=== PATIENT | male | born 1985 | race Caucasian/White ===

== ENCOUNTER 2025-08-17 21:48 | Emergency (ER) | payer OTHER, SELFPAY ==
[2025-08-17 21:49] VITALS: BMI 35.9
[2025-08-17 22:37] VITALS: BP 168/109; PULSE 79; RESP 18; TEMP 37; O2SAT 94
--- NOTE | 2025-08-17 22:40 | PD.EDEYE ---
ED Eye Problem RME/HPI General Chief complaint: Eye Problems Stated complaint: POSSIBLE GLASS IN EYE Time Seen by Provider: 08/17/25 22:38 Arrival date/time: 08/17/25 21:48 39M with no significant PMH presents to ED with R eye irritation after glass broke at work and some possibly got into eye. Patient irrigated eye right after at work. Patient does not wear contacts. Limitations: no limitations Related Data Home Medications ?Medication ?Instructions ?Recorded ?Confirmed albuterol sulfate 90 mcg/actuation 1 puff inhalation QID PRN 06/29/20 08/17/20 aerosol inhaler Bronchodilation Previous Rx's ?Medication ?Instructions ?Recorded albuterol sulfate 90 mcg/actuation 2 puff inhalation QID #8.5 grams 12/18/21 aerosol inhaler azithromycin 250 mg tablet See Rx Instructions PO .COMPLEX #6 12/18/21 tabs erythromycin 5 mg/gram (0.5 %) eye 0.5 inch ophthalmic (eye) QID 1 08/17/25 ointment week #3.5 grams Allergies Allergy/AdvReac Type Severity Reaction Status Date / Time No Known Allergies Allergy Verified 12/18/21 17:17 Review of Systems Review of Systems Systems Reviewed: All systems reviewed, normal except as documented Eyes Eyes: Reports as per HPI and Reports irritation Past Medical History Past Medical History CARDIAC: Negative Congestive Heart Failure RESPIRATORY: Positive Asthma; Negative Chronic Obstructive Pulmonary Disease (COPD) GENITOURINARY: Negative Renal Disease ENDOCRINE: Negative Diabetes Mellitus Type 1 or Diabetes Mellitus Type 2 Social History SMOKING STATUS: Current every day smoker SUBSTANCE USE: does not use ED Exam General Limitations: Present no limitations General appearance: Present alert and in no apparent distress Head Head exam: Present atraumatic Eye Eye exam: Present PERRL and EOMI Expanded Eye Exam Sclera/Conjunctival: right: injection ENT ENT exam: Present normal exam, normal oropharynx and mucous membranes moist Neck Neck exam: Present normal inspection, full ROM and trachea midline Neurological Exam Neurological exam: Present alert and oriented X3 Psychiatric Psychiatric exam: Present normal affect and normal mood Skin Skin exam: Present warm, dry, intact and normal color Course Quality Measures none Orders Category Date Time Status ED Eye Irrigation ONCE Care 08/17/25 22:38 Active Basurto Lamp to Bedside X1 Care 08/17/25 22:38 Active Erythromycin Op Oint 0.5% Med 08/17/25 22:38 Discontinued 1 gm RIGHT EYE X1 ONE Fluorescein Sodium [Bio-Catie] Med 08/17/25 22:38 Discontinued 1 mg RIGHT EYE X1 ONE Vital Signs Vital signs: Vital Signs Temperature 98.6 F 08/17/25 22:37 Pulse Rate 79 08/17/25 22:37 Respiratory Rate 18 08/17/25 22:37 Blood Pressure 168/109 H 08/17/25 22:37 Pulse Oximetry (%) 94 L 08/17/25 22:37 Oxygen Delivery Method Room Air 08/17/25 22:37 O2 at 94% on RA Eye MDM Narrative MDM Narrative:: 39M with no significant PMH presents to ED with R eye irritation after glass broke at work and some possibly got into eye. Patient irrigated eye right after at work. Patient does not wear contacts. Physical exam reveals R eye redness, but normal pupil response and EOM. No gross FB. Patient is afebrile, calm, and alert. Wood's lamp exam reveals no obvious FB or corneal abrasion. Eye irrigation, meds, and clinical mental health counselor given. Patient data External records reviewed:: [facility] previous records Clinical information provided by:: patient Social determinants that could affect healthcare access:: none Patient has the following chronic illnesses:: none How is presenting disease/condition affected by chronic disease/condition?: no chronic disease Evaluation data The following diagnostics were reviewed and interpreted by me:: other (specify) (none) Lab and/or radiology exams considered but not ordered:: not ordered Interpretation Summary: n/a Medications / Prescriptions Medications or Prescriptions considered but not ordered:: ordered Medication administrations:: Medication Administration History Discontinued Medications Erythromycin (Erythromycin Op Oint 0.5% 1 Gm Packet) 1 gm RIGHT EYE X1 ONE Stop: 08/17/25 22:39 Last Admin: 08/17/25 22:45 Dose: 1 gm Documented By: NINA Co-signed By: MYNOR Comments: admin by provider Fluorescein Sodium (Fluorescein Sod 1 Mg Strp) 1 mg RIGHT EYE X1 ONE Stop: 08/17/25 22:39 Last Admin: 08/17/25 22:45 Dose: 1 mg Documented By: NINA Comments: admin by provider above Consultations Consultation(s) initiated? (list below): No Diagnosis Eye Problem Differential Diagnosis: corneal abrasion, conjunctivitis, acute iritis, hyphema, periorbital cellulitis, subconjunctival hemorrhage, glaucoma, corneal ulcer, ruptured globe and other (FB eye) Most likely diagnosis given after review of the tests above:: corneal injury Admission Indicated Admission indicated?: not indicated Admission Request Was there a request for admission?: No Disposition Plan Disposition Plan: Discharge Discharge Attestation Discharge Attestation: The patient and all family members were given an opportunity to ask questions and understood the discharge instructions. Discharge instructions specifically effects, indications for sooner follow up or return to the emergency department, and the expected course of current diagnosis. Patient condition: Stable Discharge Plan Plan Patient Disposition: HOME (Self Care) Discharge Disposition comment: Stable Prescriptions/Referrals Prescriptions/Med Rec: New erythromycin 5 mg/gram (0.5 %) ointment 0.5 inch ophthalmic (eye) QID 7 Days Qty: 3.5 0RF No Action albuterol sulfate 90 mcg/actuation Hfa Aerosol Inhaler 1 puff INHALATION QID PRN (Reason: Bronchodilation) albuterol sulfate 90 mcg/actuation HFA aerosol inhaler 2 puff inhalation QID Qty: 8.5 0RF azithromycin 250 mg tablet See Rx Instructions .ROUTE .COMPLEX Qty: 6 0RF Rx Instructions: For 250 mg dose pack: take 500 mg today (day 1), then 250 mg for 4 days (days 2-5) Problem List Clinical Impression: Corneal injury Patient/Caregiver Discharge Instructions Education Materials: Corneal Injury Additional Instructions: Please follow-up with PCP within 24-48 hours and return immediately if symptoms worsen. See eye doctorin the next few days. Only shredder picker meds if you run out of the ones given in ED. Print Language: Albanian Stand Alone Forms: Patient Portal Info Letter JESUS/SHELLY Supervising Physician JESUS/SHELLY Supervising Physician: Dr. Day
[2025-08-17] MEDS: FLUORESCEIN SOD 1 MG STRP RIGHT EYE (22:45)
[2025-08-17] MEDS: Erythromycin Op Oint 0.5% 1 GM PACKET RIGHT EYE (22:45)
[2025-08-17 23:01] VITALS: BP 165/98; PULSE 88; O2SAT 95
== END 2025-08-17 23:49 | disposition home or self-care (01) ==
LOC: SERX 23:08
PROVIDERS: Emergency Provider Emergency Medicine; PCP Family Medicine
DX: H57.89 Other specified disorders of eye and adnexa (principal); F17.210 Nicotine dependence, cigarettes, uncomplicated
CPT/HCPCS: 99281; A9270

== ENCOUNTER 2025-08-29 03:39 | Emergency (ER) | payer MEDICAID, SELFPAY ==
[2025-08-29 03:40] VITALS: BMI 36.6
--- NOTE | 2025-08-29 04:25 | PD.EDADDENDU ---
Emergency Room Addendum Addendum Narrative: When I looked for the patient to start my evaluation, I was told the patient eloped. Ambrocio Frost MD
== END 2025-08-29 07:39 | disposition left against medical advice (07) ==
PROVIDERS: Emergency Provider Emergency Medicine
DX: Z53.21 Procedure and treatment not carried out due to patient leaving prior to being seen by health care provider (principal)
CPT/HCPCS: 99281